=== PATIENT | female | born 1985 | race American Indian/Alaskan Native ===

== ENCOUNTER 2020-12-30 00:01 | Emergency (ER) | payer SELFPAY ==
[2020-12-30] MEDS ORDERED: ONDANSETRON 4 MG ODT TAB PO ONE (03:24)
[2020-12-30] MEDS ORDERED: oxyCODONE /ACETAMINOPHEN 5-325MG TAB PO ONE (03:24)
[2020-12-30] MEDS ORDERED: DIPHtheria,PERTUSSIS(ACELL),TETANUS VACCINE/PF 0.5 ML VIAL IM ONE (03:24)
[2020-12-30] MEDS ORDERED: IBUPROFEN 800 MG TAB PO ONE (03:24)
--- NOTE | 2020-12-30 03:33 | Emergency Department Report ---
ED Eye Problem HPI - General Chief complaint: Eye Problems Stated complaint: LEFT EYE CHEMICAL BURN/BLURRED VISION Time Seen by Provider: 12/30/20 02:49 Source: patient Mode of arrival: Ambulatory Limitations: No Limitations - History of Present Illness Initial comments: CC: chemical exposure, eye pain, blurry vision HPI: This is a 35 yo female with hx of HTN who presents with severe left eye pain, blurry vision, redness tearing since chemical exposure 9 days ago. On last week, patient's eye was exposed to facial bleaching cream. She wa s evaluated at outside hospital. Treated with saline flushes. Redness, burning worsened over the subsequent 9 days. She is unable to drive due to blurry vision. She does not wear corrective lenses. chief complaint: eye pain, eye redness, eye injury (Chemical exposure) -: days(s) (9 days ago) Onset Description: gradual (Gradual worsening) Location: left eye Place: home If Injury: chemical exposure Eye Symptoms: burning, redness, pain, decreased vision, blurry vision Severity: severe Severity scale (0 -10): 10 If Pain, Quality: burning Consistency: constant Context: other (Chemical exposure to facial bleaching cream) Associated Symptoms: none Treatments Prior to Arrival: irrigated eye - Related Data Previous Rx's Medication Instructions Recorded Last Taken Type Erythromycin [Erythromycin Ophth 1 applic OP Q2H 7 Days #1 tube 12/30/20 Unknown Rx Oint] Ibuprofen [Motrin 800 MG tab] 800 mg PO Q8HR PRN #20 tablet 12/30/20 Unknown Rx oxyCODONE /ACETAMINOPHEN [Percocet 1 tab PO Q6HR PRN #10 tablet 12/30/20 Unknown Rx 5/325] ED Review of Systems ROS: Stated complaint: LEFT EYE CHEMICAL BURN/BLURRED VISION Other details as noted in HPI Comment: All other systems reviewed and negative Constitutional: denies: fever, malaise Eyes: eye pain, vision change Respiratory: denies: cough ED Past Medical Hx - Past Medical History Previous Medical History?: Yes Hx Hypertension: Yes - Surgical History Past Surgical History?: Yes - Social History Smoking Status: Current Some Day Smoker Substance Use Type: None - Medications Home Medications: Home Medications Medication Instructions Recorded Confirmed Last Taken Type Erythromycin [Erythromycin Ophth 1 applic OP Q2H 7 Days #1 tube 12/30/20 Unknown Rx Oint] Ibuprofen [Motrin 800 MG tab] 800 mg PO Q8HR PRN #20 tablet 12/30/20 Unknown Rx oxyCODONE /ACETAMINOPHEN [Percocet 1 tab PO Q6HR PRN #10 tablet 12/30/20 Unknown Rx 5/325] ED Physical Exam - General Limitations: No Limitations General appearance: alert, in no apparent distress - Head Head exam: Present: atraumatic, normocephalic - Eye Eye exam: Present: conjunctival injection - Expanded Eye Exam Expanded Eyelids: Normal Inspection: Left Pupils: Regular, Round: Left, Reactive: Left Sclera/Conjunctival: Injection: Left Anterior chamber: Normal Inspection: Left (Small 2 mm white corneal ulcer at the 7:00 region) Posterior chamber: Deferred: Left - ENT ENT exam: Present: normal orophraynx - Neck Neck exam: Present: normal inspection, full ROM - Respiratory Respiratory exam: Absent: respiratory distress - Neurological Exam Neurological exam: Present: alert, oriented X3 - Psychiatric Psychiatric exam: Present: normal affect, normal mood - Skin Skin exam: Present: warm, dry, intact, normal color ED Course Vital Signs 12/30/20 01:39 Temperature 98.0 F Pulse Rate 70 Respiratory 17 Rate Blood Pressure 182/110 O2 Sat by Pulse 100 Oximetry ED Medical Decision Making - Medical Decision Making Small corneal ulcer evident, suspect chemical keratitis: Patient given tetanus booster, patient also given pain control with Percocet ibuprofen. Prescribed erythromycin ointment. Strongly encouraged follow-up at [facility]. Critical care attestation.: If time is entered above; I have spent that time in minutes in the direct care of this critically ill patient, excluding procedure time. ED Disposition Clinical Impression: Corneal ulcer of left eye, Chemical keratitis, Chemical exposure of eye Disposition: DC- TO HOME OR SELFCARE Is pt being admited?: No Does the pt Need Aspirin: No Condition: Stable Instructions: Corneal Ulcer, How to Use Eye Drops and Eye Ointments Additional Instructions: Please follow-up on Thursday: [email or web address], [place] [address] Prescriptions: Erythromycin [Erythromycin Ophth Oint] 1 applic OP Q2H 7 Days #1 tube Ibuprofen [Motrin 800 MG tab] 800 mg PO Q8HR PRN #20 tablet PRN Reason: Pain , Severe (7-10) oxyCODONE /ACETAMINOPHEN [Percocet 5/325] 1 tab PO Q6HR PRN #10 tablet PRN Reason: Pain
[2020-12-30 04:26] VITALS: BP 156/103
== END 2020-12-30 04:26 | disposition home or self-care (01) ==
LOC: ED 00:01
DX: H16.8 Other keratitis (principal); H16.002 Unspecified corneal ulcer, left eye; I10 Essential (primary) hypertension; F17.200 Nicotine dependence, unspecified, uncomplicated; Z88.8 Allergy status to other drugs, medicaments and biological substances; Z79.899 Other long term (current) drug therapy; Z77.098 Contact with and (suspected) exposure to other hazardous, chiefly nonmedicinal, chemicals
CPT/HCPCS: 90471; 90715; 99283; Q0162